=== PATIENT | female | born 1945 | race Two or more races ===

== ENCOUNTER → 2024-10-23 | Outpatient (REF) | payer MEDICARE | LOC: EEVIPCON 13:16 → M SFHCADAM 13:16 | PROVIDERS: ATTEND Family Medicine | DX: L02.92 Furuncle, unspecified (principal) ==

== ENCOUNTER → 2025-04-07 | Outpatient (CLI) | payer MEDICARE ==
[~2025-04-07] MED LIST: AMLO1TAB24 PO; ASPI81TAEC PO; ATOR40TA75 PO
== END ==
LOC: M ADAMS 15:08
PROVIDERS: ATTEND Family Medicine
DX: M25.649 Stiffness of unspecified hand, not elsewhere classified (principal)

== ENCOUNTER → 2025-04-07 | Outpatient (REF) | payer MEDICARE ==
[2025-04-07 18:28] LABS: C REACTIVE PROTEIN QUANTITATIV 6.74 MG/DL (<1.0)
[2025-04-07 18:29] LABS: RHEUMATOID FACTOR QUANT 6.9 IU/ML (<14)
== END ==
LOC: M SFHCADAM 14:38
PROVIDERS: ATTEND Family Medicine
DX: M25.649 Stiffness of unspecified hand, not elsewhere classified (principal); L02.92 Furuncle, unspecified

== ENCOUNTER 2025-04-19 10:01 | Emergency (ER) | payer MEDICARE ==
[~2025-04-19] VITALS: Ht 166.4 cm; Wt 86.1 kg
[2025-04-19] MEDS ORDERED: BACTDSTA (10:12)
[2025-04-19] MEDS ORDERED: DIPH12.529 PO (10:12)
[2025-04-19] MEDS ORDERED: LISI10TA22 (10:12)
[2025-04-19] MEDS: diphenhydrAMINE 50 MG/ML VIAL IV ONE (11:32)
[2025-04-19] MEDS: FAMOTIDINE IV BAG 20 MG in IV 1 EA IV ONE (11:32)
[2025-04-19 14:22] VITALS: BP 181/77; TEMP 98.2; O2SAT 100
== END 2025-04-19 14:32 | disposition home or self-care (01) ==
LOC: M ED 10:01
DX: K13.0 Diseases of lips (principal); T46.4X5A Adverse effect of angiotensin-converting-enzyme inhibitors, initial encounter; T78.3XXA Angioneurotic edema, initial encounter; I10 Essential (primary) hypertension; E78.5 Hyperlipidemia, unspecified; Z91.010 Allergy to peanuts; Z88.8 Allergy status to other drugs, medicaments and biological substances; Z79.82 Long term (current) use of aspirin; Z79.899 Other long term (current) drug therapy; Z79.2 Long term (current) use of antibiotics
CPT/HCPCS: 96365; 96375; 99284; J1100; J1200; J1308

== ENCOUNTER → 2025-05-07 | Outpatient (REF) | payer MEDICARE ==
[~2025-05-07] MED LIST changes: +DIPH12.529 PO; +LISI10TA22; +SULF-8
[2025-05-07 14:02] LABS: C REACTIVE PROTEIN QUANTITATIV 3.48 MG/DL (<1.0)
[2025-05-07 14:03] LABS: ALT/SGPT 15.0 U/L (7.0-40); AST/SGOT 16.0 U/L (<34); CALCIUM LEVEL 9.1 MG/DL (8.3-10.6); CARBON DIOXIDE LEVEL 27.0 MMOL/L (20-31); CHLORIDE LEVEL 105.0 MMOL/L (98-107); CREATININE FOR GFR 0.87 MG/DL (0.55-1.30); GLOMERULAR FILTRATION RATE 68.2 (>39); POTASSIUM SERUM 4.2 MMOL/L (3.5-5.1); SODIUM LEVEL 141.0 MMOL/L (136-145)
== END ==
LOC: M SFHCADAM 09:22
PROVIDERS: ATTEND Family Medicine
DX: R59.1 Generalized enlarged lymph nodes (principal); R93.0 Abnormal findings on diagnostic imaging of skull and head, not elsewhere classified; M25.50 Pain in unspecified joint